=== PATIENT | male | born 2000 | race Caucasian/White ===

== ENCOUNTER 2024-04-11 11:30 | Emergency (ER) | payer BC, SELFPAY ==
[2024-04-11] MEDS ORDERED: HYDROcodone/Acetaminophen 5/325 mg Tablet ONE (12:11)
[2024-04-11] MEDS ORDERED: Ibuprofen 800 MG TAB ONE (12:11)
== END 2024-04-11 12:25 | disposition home or self-care (01) ==
LOC: NAV ERS 11:30
DX: M25.531 Pain in right wrist (principal); M79.89 Other specified soft tissue disorders; W19.XXXA Unspecified fall, initial encounter
CPT/HCPCS: 99283